=== PATIENT | female | born 1990 ===

== ENCOUNTER 2021-11-20 10:41 | Outpatient (CLI) | payer OTHER | END 2021-11-20 11:27 | disposition home or self-care (01) | LOC: PRENATAL 10:41 | PROVIDERS: ATTEND Obstetrics & Gynecology Maternal & Fetal Medicine | DX: O99.210 Obesity complicating pregnancy, unspecified trimester (principal); O34.219 Maternal care for unspecified type scar from previous cesarean delivery; O36.80X0 Pregnancy with inconclusive fetal viability, not applicable or unspecified ==

== ENCOUNTER 2022-01-16 13:05 | Outpatient (CLI) | payer OTHER | END 2022-01-16 15:05 | disposition home or self-care (01) | LOC: PRENATAL 13:05 | PROVIDERS: ATTEND Obstetrics & Gynecology Maternal & Fetal Medicine | DX: O35.0XX0 Maternal care for (suspected) central nervous system malformation in fetus, not applicable or unspecified (principal); Z3A.20 20 weeks gestation of pregnancy; O35.3XX0 Maternal care for (suspected) damage to fetus from viral disease in mother, not applicable or unspecified ==